=== PATIENT | female | born 1990 | race Caucasian/White ===

== ENCOUNTER → 2021-02-12 | Day surgery (SDC) | payer OTHER ==
[~2021-02-12] VITALS: Ht 162.6 cm; Wt 140.0 kg
[~2021-02-12] MED LIST: ALBU2.5V8 IH; IV RINGERS,LACTATED 1000ML 1,000 ML IV SCH; NORE1PAT7 TD; PREN1TAB PO; PROPOFOL 10 MG/ML (20ML) VIAL. IV ONE
[2021-02-12 12:05] VITALS: BP 119/66
[2021-02-12 14:02] VITALS: BP 131/76
--- NOTE | 2021-02-17 08:12 | PATHOLOGY ---
[facility] Accession Number: [id number] . 01 Material submitted: . PART A: duodenum - DUODENAL BX PART B: colon - RANDOM COLON BX . 01 Clinical history: . DIARRHEA EGD, COLONOSCOPY . 02 Diagnosis: A. Duodenal biopsies: - No significant pathologic abnormalities. . B. Random colon biopsies: - No significant pathologic abnormalities. . (JPM:akshat; 02/16/2021) [facility] 02/16/2021 1642 Local . 02 Comment: Sections of the duodenal biopsy reveal multiple segments of duodenal and small intestine mucosa. Where best oriented, the mucosal villi show no sprue-like changes or significant inflammatory changes. . Sections of the random colon biopsy reveal multiple segments of colonic mucosa containing several small mucosal-associated lymphoid aggregates. There is no evidence of a chronic destructive colitis, lymphocytic colitis, or collagenous colitis. . (LALYM:akshat; 02/16/2021) . 02 Electronically signed: . Bony Pettit MD, Pathologist NPI- [id number] . 01 Gross description: . A. Received in formalin labeled "Egan, Marlene, duodenal BX" are multiple thomas-brown soft tissue fragments measuring in aggregate 1.0 x 0.6 x 0.1 cm. The specimen is submitted entirely in A1. . B. Received in formalin labeled "Egan, Marlene, random colon BX" are multiple thomas-brown soft tissue fragments measuring in aggregate 2.3 x 0.8 x 0.1 cm. The specimen is submitted entirely in B1. ([facility] [place] 02/15/2021) [facility] 02/15/2021 1019 Local . 02 Pathologist provided ICD-10: R19.7, Z12.11 . 02 CPT . 926214, 732150 Specimen Comment: A courtesy copy of this report has been sent to [phone], [phone] Specimen Comment: [id number] Specimen Comment: Report sent to / DR JENSEN Performed at: 01 [facility] [address] [id number] MD Wes Osborn MD Phone: [phone] Performed at: 02 [facility] [address] [place], [place] [id number] MD Bony Pettit MD Phone: [phone]
== END | disposition home or self-care (01) ==
LOC: ENDOS 10:34
PROVIDERS: ATTEND Internal Medicine Gastroenterology
DX: R19.7 Diarrhea, unspecified (principal); K64.0 First degree hemorrhoids; K63.89 Other specified diseases of intestine; K31.89 Other diseases of stomach and duodenum; Z79.899 Other long term (current) drug therapy; Z98.890 Other specified postprocedural states; Z88.6 Allergy status to analgesic agent; Z88.8 Allergy status to other drugs, medicaments and biological substances
CPT/HCPCS: 43239; 45380; 81025; 88305; J2704